=== PATIENT | male | born 1970 | race Caucasian/White ===

== ENCOUNTER 2023-07-29 11:18 | Day surgery (SDC) | payer OTHER ==
[2023-07-23 15:59] VITALS: BMI 21.7
[~2023-07-29 11:18] MED LIST: LACTATED RINGERS 1,000 ML IV SCH
[2023-07-29 13:22] VITALS: TEMP 98.2
[2023-07-29] MEDS ORDERED: PROPOFOL 10 MG/ML 20 ML VIAL IV ONE (13:33)
--- NOTE | 2023-07-29 13:34 | P.GSHP ---
History of Present Illness H&P Date: 07/29/23 Chief Complaint: Screening colonoscopy This a 53-year-old male presents today for screening colonoscopy. Patient denies a significant GI complaints. Past Medical History Past Medical History: No Reported History History of Any Multi-Drug Resistant Organisms: None Reported Past Surgical History: No Surgical Hx Reported Past Anesthesia/Blood Transfusion Reactions: No Reported Reaction Smoking Status: Current every day smoker Medications and Allergies Home Medications Medication Instructions Recorded Confirmed Type buPROPion HCL [Wellbutrin XL] 150 mg PO DAILY 07/23/23 07/29/23 History Allergies Allergy/AdvReac Type Severity Reaction Status Date / Time No Known Allergies Allergy Verified 07/29/23 13:00 Surgical - Exam Vital Signs Temp Pulse Resp BP Pulse Ox 98.2 F 55 L 18 113/75 100 07/29/23 13:09 07/29/23 13:09 07/29/23 13:09 07/29/23 13:09 07/29/23 13:09 - General well developed, well nourished, no distress - Eyes PERRL - ENT normal pinna - Neck no masses - Respiratory normal expansion - Cardiovascular Rhythm: regular - Abdomen Abdomen: soft, non tender Assessment and Plan Assessment: We'll perform screening colonoscopy.
--- NOTE | 2023-07-29 13:52 | P.OP ---
Date of Procedure: 07/29/23 Preoperative Diagnosis: Screening colonoscopy Postoperative Diagnosis: Right colon polyp Procedure(s) Performed: Colonoscopy Anesthesia: MAC Surgeon: Devon Dawson Pathology: other (Right colon polyp) Condition: stable Disposition: PACU Description of Procedure: The patient's placed on the endoscopy table in the lateral position. He received IV sedation. Digital rectal exam was performed. This revealed no ebonized. The flexible colonoscope was then placed patient anus and passed throughout the entire colon. The ileocecal valve was visualized. The cecum, appeared normal. In the right colon there was a small sessile polyp. This removed with the cold forcep. A few scattered diverticula seen and transverse colon. The descending colon appeared normal. The sigmoid colon. Normal. Scope was brought back the rectum and this was normal. Scope withdrawn for patient.
[2023-07-29 14:19] VITALS: BP 127/78; PULSE 78; RESP 18
== END 2023-07-29 14:51 | disposition home or self-care (01) ==
LOC: ORWHC2ENDO 11:18
PROVIDERS: ATTEND Surgery
DX: Z12.11 Encounter for screening for malignant neoplasm of colon (principal); D12.2 Benign neoplasm of ascending colon; F17.200 Nicotine dependence, unspecified, uncomplicated
CPT/HCPCS: 88305; 45380; J2704